=== PATIENT | female | born 1995 | race Caucasian/White ===

== ENCOUNTER 2017-07-27 04:51 | Inpatient (IN) | payer BC, OTHER ==
[~2017-07-27] VITALS: Ht 172.7 cm; Wt 79.1 kg
[~2017-07-27 04:51] MED LIST: Z.0.NO CURRENT MEDS
[2017-07-27 05:00] VITALS: BP 144/83; PULSE 57; RESP 18; TEMP 97.8; O2SAT 100
--- NOTE | 2017-07-27 05:13 | PD ---
HPI Chief Complaint: BA Time Seen by Provider: 05:09 Travel History International Travel<30 days: No Contact w/Intl Traveler<30days: No Traveled to known affect area: No History of Present Illness HPI 22-year-old female presents under Sommer act initiated by the [employer]. According to her paperwork, "Mrs. Esparza does not remember anything past approximately 10 PM. She told dispatch that she was trying to hurt herself by hanging." Patient reports that this evening she went to a bar with a friend and drink some beer. She then went to the beach. She does not recall the interim events but when she woke up she had her sweater wrapped around her neck as a noose and she reports that she does remember that she wanted to hang herself. She reports that the police found her on the beach. She continues to feel depressed and suicidal which has been going on for the past few weeks. She reports multiple attempts at suicide in the past. She denies doing anything else to hurt herself tonight. She endorses occasional marijuana use. She has no medical complaints at this time. [facility] Past Medical History ADHD: No Asthma: Yes (HX OF) Cancer: No Diabetes: No Diminished Hearing: No Psychiatric: No Immunizations Current: Yes Migraines: No Seizures: No Thyroid Disease: No Ulcer: No Menopausal: No : 0 Past Surgical History Appendectomy: No Cholecystectomy: No Other Surgery: Yes (PIN IN HER TOE IN OCTOBER 2008) Social History Alcohol Use: No Tobacco Use: No Substance Use: No Allergies-Medications (Allergen,Severity, Reaction): Coded Allergies: No Known Allergies (Verified , 06/08/10) Uncoded Allergies: dust mites (Allergy, Mild, runny nose, cough, sneeze, 10/13/08) grasses (Allergy, Mild, sneezing, runnynose, 10/13/08) tree pollens (Allergy, Mild, sneezing, 10/13/08) Reported Meds & Prescriptions Reported Meds & Active Scripts Active No Active Prescriptions or Reported Medications Review of Systems Except as stated in HPI: all other systems reviewed are Neg Physical Exam Narrative Examined in the presence of a female nurse. GENERAL: Well-developed well-nourished female no acute distress SKIN: Warm and dry. HEAD: Atraumatic. Normocephalic. EYES: Pupils equal and round. No scleral icterus. No injection or drainage. ENT: No nasal bleeding or discharge. Mucous membranes pink and moist. NECK: Trachea midline. No JVD. CARDIOVASCULAR: Regular rate and rhythm. No murmur appreciated. RESPIRATORY: No accessory muscle use. Clear to auscultation. Breath sounds equal bilaterally. GASTROINTESTINAL: Abdomen soft, non-tender, nondistended. Hepatic and splenic margins not palpable. MUSCULOSKELETAL: No obvious deformities. No clubbing. No cyanosis. No edema. NEUROLOGICAL: Awake and alert. No obvious cranial nerve deficits. Motor grossly within normal limits. Normal speech. PSYCHIATRIC: Depressed mood. Data Data Last Documented VS Vital Signs Date Time Temp Pulse Resp B/P (MAP) Pulse Ox O2 Delivery O2 Flow Rate FiO2 07/27/17 05:23 50 18 07/27/17 05:00 97.8 144/83 (103) 100 Orders Orders Complete Blood Count With Diff (07/27/17 05:11) Comprehensive Metabolic Panel (07/27/17 05:11) Thyroid Stimulating Hormone (07/27/17 05:11) Ed Urine Pregnancytest Poc (07/27/17 05:11) Psych Screen (07/27/17 05:11) Drug Screen, Random Urine (07/27/17 05:11) Alcohol (Ethanol) (07/27/17 05:11) Salicylates (Aspirin) (07/27/17 05:11) Tylenol (Acetaminophen) (07/27/17 05:11) Labs Laboratory Tests Test 07/27/17 05:15 White Blood Count 8.1 TH/MM3 Red Blood Count 4.98 MIL/MM3 Hemoglobin 14.5 GM/DL Hematocrit 43.0 % Mean Corpuscular Volume 86.3 FL Mean Corpuscular Hemoglobin 29.2 PG Mean Corpuscular Hemoglobin Concent 33.8 % Red Cell Distribution Width 12.8 % Platelet Count 202 TH/MM3 Mean Platelet Volume 9.1 FL Neutrophils (%) (Auto) 61.1 % Lymphocytes (%) (Auto) 27.5 % Monocytes (%) (Auto) 8.3 % Eosinophils (%) (Auto) 2.8 % Basophils (%) (Auto) 0.3 % Neutrophils # (Auto) 4.9 TH/MM3 Lymphocytes # (Auto) 2.2 TH/MM3 Monocytes # (Auto) 0.7 TH/MM3 Eosinophils # (Auto) 0.2 TH/MM3 Basophils # (Auto) 0.0 TH/MM3 CBC Comment DIFF FINAL Differential Comment Blood Urea Nitrogen 9 MG/DL Creatinine 0.80 MG/DL Random Glucose 99 MG/DL Total Protein 7.5 GM/DL Albumin 3.8 GM/DL Calcium Level 8.8 MG/DL Alkaline Phosphatase 69 U/L Aspartate Amino Transf (AST/SGOT) 14 U/L Alanine Aminotransferase (ALT/SGPT) 13 U/L Total Bilirubin 0.4 MG/DL Sodium Level 140 MEQ/L Potassium Level 3.7 MEQ/L Chloride Level 108 MEQ/L Carbon Dioxide Level 22.8 MEQ/L Anion Gap 9 MEQ/L Estimat Glomerular Filtration Rate 89 ML/MIN Thyroid Stimulating Hormone 3rd Gen 1.600 uIU/ML Salicylates Level LESS THAN 1.7 MG/DL Urine Opiates Screen NEG Acetaminophen Level LESS THAN 2.0 MCG/ML Urine Barbiturates Screen NEG Urine Amphetamines Screen NEG Urine Benzodiazepines Screen NEG Urine Cocaine Screen NEG Urine Cannabinoids Screen NEG Ethyl Alcohol Level LESS THAN 3 MG/DL MDM Medical Decision Making Medical Screen Exam Complete: Yes Emergency Medical Condition: Yes Medical Record Reviewed: Yes Differential Diagnosis Major depressive disorder, adjustment reaction, acute psychosis, substance- induced mood disorder Narrative Course 22-year-old female presents under a Sommer act for psychiatric evaluation. Mental health screening discussed with the patient. Psychiatric screen ordered. The patient is medically cleared for psychiatric disposition. Diagnosis Primary Impression: Medical clearance for psychiatric admission Scripts No Active Prescriptions or Reported Meds Rich Mariano Jul 27, 2017 05:13
[2017-07-27 05:58] LABS: AUTOMATED NEUTROPHIL # 4.9 TH/MM3 (1.8-7.7); BASOPHIL % 0.3 % (0.0-2.0); EOSINOPHIL # 0.2 TH/MM3 (0-0.4); EOSINOPHIL % 2.8 % (0.0-4.0); HEMOGLOBIN 14.5 GM/DL (11.6-15.3); LYMPH % 27.5 % (9.0-44.0); LYMPHOCYTE # 2.2 TH/MM3 (1.0-4.8); MEAN CELL VOLUME 86.3 FL (80.0-100.0); MEAN CORPUSCULAR HEMOGLOBIN 29.2 PG (27.0-34.0); MEAN CORPUSCULAR HGB CONC 33.8 % (32.0-36.0); MEAN PLATELET VOLUME 9.1 FL (7.0-11.0); MONO % 8.3 % (0.0-8.0); MONOCYTE # 0.7 TH/MM3 (0-0.9); NEUT % 61.1 % (16.0-70.0); PLATELET COUNT 202 TH/MM3 (150-450); RED BLOOD COUNT 4.98 MIL/MM3 (4.00-5.30); RED CELL DISTRIBUTION WIDTH 12.8 % (11.6-17.2); WHITE BLOOD COUNT 8.1 TH/MM3 (4.0-11.0)
[2017-07-27 06:01] LABS: ALBUMIN 3.8 GM/DL (3.4-5.0); ALT (GPT) 13 U/L (10-53); AST (GOT) 14 U/L (15-37); BICARBONATE 22.8 MEQ/L (21.0-32.0); BLOOD UREA NITROGEN 9 MG/DL (7-18); CALCIUM 8.8 MG/DL (8.5-10.1); CHLORIDE 108 MEQ/L (98-107); GLOMERULAR FILTRATION RATE 89 ML/MIN (>89); GLUCOSE,RANDOM 99 MG/DL (74-106); SODIUM (NA) 140 MEQ/L (136-145)
[2017-07-27 06:11] LABS: ACETAMINOPHEN LESS THAN 2.0 MCG/ML (10.0-30.0); ALKALINE PHOSPHATASE 69 U/L (45-117); TOTAL BILIRUBIN ADULT 0.4 MG/DL (0.2-1.0); TOTAL PROTEIN 7.5 GM/DL (6.4-8.2)
[2017-07-27 07:57] VITALS: BP 109/61; PULSE 72; RESP 17; O2SAT 100
[2017-07-27 15:16] VITALS: BP 122/69; PULSE 46; RESP 16; O2SAT 96
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
[2017-07-27] MEDS ORDERED: ALUMINUM/MAGNESIUM/SIMETH 30 ML CUP PO PRN (18:15)
[2017-07-27] MEDS ORDERED: MAGNESIUM HYDROXIDE SUSP 30 ML CUP PO PRN (18:15)
[2017-07-27 19:01] VITALS: BP 122/65; PULSE 40; RESP 16; O2SAT 99
[2017-07-27 22:15] VITALS: BP 134/62; PULSE 52; RESP 18; TEMP 98; O2SAT 100
[2017-07-28 05:58] VITALS: BP 107/58; PULSE 41; RESP 16; TEMP 97.7; O2SAT 99
[2017-07-28 11:43] LABS: BICARBONATE 24.1 MEQ/L (21.0-32.0); BLOOD UREA NITROGEN 10 MG/DL (7-18); CALCIUM 8.8 MG/DL (8.5-10.1); CHLORIDE 107 MEQ/L (98-107); CREATININE 0.82 MG/DL (0.50-1.00); GLOMERULAR FILTRATION RATE 86 ML/MIN (>89); GLUCOSE,RANDOM 87 MG/DL (74-106); SODIUM (NA) 140 MEQ/L (136-145)
[2017-07-28 11:44] LABS: CHOLESTEROL 139 MG/DL (120-200)
[2017-07-28 11:46] LABS: CHOLESTEROL/ HDL RATIO 3.53 RATIO; HDL CHOLESTEROL 39.3 MG/DL (40.0-60.0); LDL CHOLESTEROL 73 MG/DL (0-99); TRIGLYCERIDES 136 MG/DL (42-150)
[2017-07-28] MEDS ORDERED: hydrOXYzine HCL 50 MG TAB PO PRN (13:45)
[2017-07-28] MEDS: buPROPion HCL 150 MG SUSTAINED RELEASE TAB PO SCH (14:26)
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
[2017-07-28] MEDS ORDERED: FLUMAZENIL 0.5 MG/5 ML VIAL IV PUSH PRN (16:00)
[2017-07-28] MEDS ORDERED: LORazepam 2 MG/ML VIAL IV PUSH PRN ×4 (16:00)
[2017-07-28] MEDS ORDERED: LORazepam 1 MG TAB PO PRN (16:00)
[2017-07-28] MEDS ORDERED: LORazepam 2 MG TAB PO PRN (16:00)
[2017-07-28] MEDS: ACETAMINOPHEN 325 MG TAB PO PRN (17:13)
[2017-07-28 17:18] VITALS: BP 128/71; PULSE 60; RESP 16; TEMP 97.3; O2SAT 98
[2017-07-28 18:19] LABS: HEMOGLOBIN A1C 4.8 % (4.3-6.0)
[2017-07-28] MEDS: diphenhydrAMINE HCL 50 MG CAP PO PRN (22:23)
[2017-07-29 05:32] VITALS: BP 108/65; PULSE 59; RESP 18; TEMP 98.2; O2SAT 100
[2017-07-29] MEDS: buPROPion HCL 150 MG SUSTAINED RELEASE TAB PO SCH (08:35)
[2017-07-29] MEDS ORDERED: ALBUTEROL SULFATE 90 MCG/ACT HFA 8 GM INHALER INH PRN (11:45)
[2017-07-29] MEDS ORDERED: guaiFENesin/DEXTROMETHORPHAN 200 MG/20 MG/10 ML CUP PO PRN (11:45)
[2017-07-29] MEDS ORDERED: BENZOCAINE-MENTHOL (SUGAR FREE) 15 MG-3.6 MG LOZENGE BUCCAL PRN (12:15)
--- NOTE | 2017-07-29 12:22 | PD.CONS ---
HPI Service [facility] Hospitalists Consult Requested By Dr. Amaya Reason for Consult SOB/cough, vaginal discharge Primary Care Physician Unknown Diagnoses: History of Present Illness 22-year-old female with history of childhood asthma, ADHD, bipolar disorder, anxiety, admitted to inpatient psychiatry under Sommer act for suicidal ideations. The patient does not recall the events leading up to her admission as she was intoxicated, however the Sommer act reported patient was trying to hurt herself by hanging. Hospitalist consulted for medical management. The patient reports she has had 4 to 5 day history of cough, rhinitis, upper chest congestion, and scratchy throat. Denies fevers/chills. Denies dysphagia/ odynophagia. She reports cough is nonproductive however has yellow-green nasal discharge. She reports a history of seasonal allergies and feels as though her allergies are acting up. She states in the past Zyrtec made her too sleepy therefore she does not take it anymore. She reports occasional shortness of breath and wheezing since she has felt sick. She states her asthma is usually very well controlled and does not need to use it inhaler. Denies any chest pain. She also reports a 9 day history of vaginal discharge described as green- brown. LMP 2 weeks ago. She denies any vaginal pruritus, but does report diffuse lower pelvic pain and suprapubic pain. She also reports some dysuria and increased urinary frequency/urgency. Denies any recent antibiotic use. She does report history of chlamydia. She has no other medical complaints at this time including no lightheadedness, dizziness, chest pain, palpitations, nausea/ vomiting, or diarrhea. Review of Systems Except as stated in HPI: all other systems reviewed are Neg Past Family Social History Allergies: Coded Allergies: No Known Allergies (Verified Allergy, Unknown, 07/27/17) Uncoded Allergies: dust mites (Allergy, Mild, runny nose, cough, sneeze, 10/13/08) grasses (Allergy, Mild, sneezing, runnynose, 10/13/08) tree pollens (Allergy, Mild, sneezing, 10/13/08) Past Medical History Childhood asthma Bipolar disorder ADHD Anxiety Past Surgical History Toe pinning 2008 Reported Medications Denies taking any medications on a regular basis. Active Ordered Medications Current Medications Medications (Trade) Dose Ordered Sig/Sommer Route Start Time Stop Time Status Last Admin (Tylenol) 650 mg Q4H PRN PO 07/27/17 18:15 07/28/17 17:13 (Milk Of Magnesia Liq) 30 ml DAILY PRN PO 07/27/17 18:15 (Mag-Al Plus Susp Liq) 30 ml Q6H PRN PO 07/27/17 18:15 (Wellbutrin Sr) 150 mg DAILY PO 07/28/17 13:45 07/29/17 08:35 (Atarax) 50 mg Q6H PRN PO 07/28/17 13:45 (Benadryl) 50 mg HS PRN PO 07/28/17 13:45 07/28/17 22:23 (Romazicon Inj) 0.2 mg Q1M PRN IV PUSH 07/28/17 16:00 (Ativan) 1 mg Q4H PRN PO 07/28/17 16:00 (Ativan Inj) 1 mg Q4H PRN IV PUSH 07/28/17 16:00 (Ativan) 2 mg Q2H PRN PO 07/28/17 16:00 (Ativan Inj) 2 mg Q2H PRN IV PUSH 07/28/17 16:00 (Ativan Inj) 2 mg Q1H PRN IV PUSH 07/28/17 16:00 (Ativan Inj) 2 mg Q15M PRN IV PUSH 07/28/17 16:00 (Claritin) 10 mg DAILY PO 07/29/17 11:45 UNV (Proair Hfa Inh) 2 puff Q4H PRN INH 07/29/17 11:45 UNV Family History Does not know biological parents' history as patient was adopted Social History Smokes tobacco, 2 cigarettes daily Drinks alcohol, 2 beers or liquor beverages daily Occasional marijuana use, once weekly Denies any other illicit drug use Physical Exam Vital Signs Vital Signs Date Time Temp Pulse Resp B/P (MAP) Pulse Ox O2 Delivery O2 Flow Rate FiO2 07/29/17 05:32 98.2 59 18 108/65 (79) 100 07/28/17 17:18 97.3 60 16 128/71 (90) 98 Physical Exam GENERAL: Well-nourished, well-developed young female patient in [facility]. Patient examined in presence of nurse Serenity. SKIN: Warm and dry. No rash. HEAD: Normocephalic. Atraumatic. EYES: Pupils equal and round. No scleral icterus. No injection or drainage. ENT: No nasal bleeding or discharge. Mucous membranes pink and moist. Oropharynx with mild erythema, otherwise no tonsillar edema or exudate. NECK: Supple. Trachea midline. CARDIOVASCULAR: Regular rate and rhythm. No murmur appreciated. RESPIRATORY: No accessory muscle use. Some upper airway congestion noted, otherwise clear to auscultation. Breath sounds equal bilaterally. GASTROINTESTINAL: Abdomen soft, non-tender, nondistended. Normoactive bowel sounds x4. MUSCULOSKELETAL: No obvious deformities. Extremities without clubbing, cyanosis , or edema. NEUROLOGICAL: Awake and alert. No obvious cranial nerve deficits. Motor grossly within normal limits. Normal speech. PSYCHIATRIC: Appropriate mood and affect; insight and judgment normal. Result Diagram: 07/27/17 0515 07/28/17 0950 Assessment and Plan Assessment and Plan 22-year-old female with history of childhood asthma, ADHD, bipolar disorder, anxiety, admitted to inpatient psychiatry under Sommer act for suicidal ideations. Hospitalist consulted for medical management of cough/congestion and vaginal discharge. Suicidal Ideations/Attempt: presented under Sommer Act. Hx of Bipolar, ADHD, Anxiety. -continue management per psychiatry Viral URI & Seasonal Allergies: patient reporting rhinitis/nonproductive cough/ congestion/sneezing. Afebrile with no leukocytosis. Likely viral in combination with seasonal allergies. -will start on Claritin 10mg daily -Robitussin prn cough, Cepacol lozenges prn -encourage fluids -continue to monitor Asthma: does not appear to be in exacerbation, however patient reports occasional SOB and wheezing with URI as above -will give Albuterol inhaler 2puff q4h prn SOB/wheezing Vaginal Discharge: x9days. With reported diffuse pelvic pain. Reportedly hx of chlamydia. -check GC/Chlamydia PCR -consult gynecology Dysuria: patient reporting dysuria, increased urinary frequency/urgency, and suprapubic pain. -check urinalysis and treat if indicated Tobacco/Alcohol Use: smokes 2 cigarettes daily, and drink 2 alcoholic beverages daily -counseled on cessation -patient declined need for nicotine patch DVT Prophylaxis: patient is ambulatory Madeline Fragoso PA-C Jul 29, 2017 12:22
--- NOTE | 2017-07-29 12:37 | HHI.PYPN ---
Subjective Remarks Patient seen and examined with nurse in coverage for Dr. Amaya. Chart reviewed. Case discussed with nursing staff who reports patient continues to verbalize intermittent suicidal ideation but declines to provide her suicide plan when asked. On my examination today, the patient says that she is "still feeling pretty down." She does say that she's been a little more active than her appetite has been better since coming on the unit. She denies any homicidal ideation but endorses ongoing suicidal ideation and refuses to contract for safety on the inpatient unit. She has no suicide plan at present. We discussed need for transfer to higher acuity unit for closer monitoring as she is not yareli for safety on the inpatient unit, and the patient agrees that this is a prudent step presently. I have instructed the patient's nurse and charge nurse to transfer the patient to the high acuity unit, camera room. No psychotic symptoms presently. Denies side effects from medications. No physical complaints. Patient remains a Sommer act but is agreeable to signing into the hospital voluntarily, and I bankruptcy judge that she has capacitated to do so. Review of Systems Except as stated in HPI: all other systems reviewed are Neg Mental Status Examination Appearance: Appropriate Consciousness: Alert Orientation: x4 Motor Activity: Normal gait, Other (no motor abnormalities noted. No signs of withdrawal noted.) Speech: Unremarkable Language: Adequate Fund of Knowledge: Adequate Attention and Concentration: Adequate Memory: Unremarkable Mood: Sad Affect: Other (moderately full and reactive) Thought Process & Associations: Intact, Logical, Goal directed, Linear Thought Content: Appropriate Hallucination Type: None Delusion Type: None Suicidal Ideation: Yes Suicidal Plan: No Suicidal Intention: No (declines to contract for safety on the inpatient unit) Homicidal Ideation: No Homicidal Plan: No Homicidal Intention: No Insight: Fair Judgment: Impulsive Results Labs Labs reviewed. Vitals/IOs Vital Signs Date Time Temp Pulse Resp B/P (MAP) Pulse Ox O2 Delivery O2 Flow Rate FiO2 07/29/17 05:32 98.2 59 18 108/65 (79) 100 07/27/17 19:01 Room Air Assessment & Plan Problem List: (1) Adjustment disorder with depressed mood ICD Codes: F43.21 - Adjustment disorder with depressed mood (2) Polysubstance abuse ICD Codes: F19.10 - Other psychoactive substance abuse, uncomplicated Assessment & Plan Continue Wellbutrin as ordered. Transfer patient to high acuity unit, camera room. Hospitalist input noted and appreciated. Continue other medications and care as ordered. Patient may sign voluntary. Justification for Cont. Inpt. Concern for impairment in safety. Discharge Planning Per Dr. Amaya Request HC Surrog/Guard Advoc?: No Say Lockhart MD Jul 29, 2017 12:37
[2017-07-29] MEDS: LORATADINE 10 MG TAB PO SCH (13:34)
[2017-07-29 16:54] LABS: BILIRUBIN, URINE NEG (NEG); BLOOD, URINE NEG (NEG); GLUCOSE,URINE NEG (NEG); KETONE, URINE NEG (NEG); NITRITE,URINE NEG (NEG); SQUAMOUS EPITHELIAL CELL URINE 5 /hpf (0-5); URINE COLOR YELLOW (YELLW/STRAW); URINE LEUKOCYTE ESTERASE NEG (NEG)
--- NOTE | 2017-07-29 18:04 | PD.CONS ---
HPI Chief Complaint Pelvic pain and vaginal discharge Date Seen: Jul 29, 2017 Time Seen: 17:58 Travel History International Travel<30 Days: No Contact w/Intl Traveler<30Days: No Known Affected Area: No History of Present Illness HPI Patient 22-year-old female who is admitted to psychiatry due to suicidal ideation. Patient complains of pelvic pain that occurred several days per month just in the suprapubic area and occasionally after voiding. Patient states that she has had 1-1/2 weeks of a malodorous, brown vaginal discharge that also comes and goes. Patient denies recent coitus and denies exposure to any STDs within the past several weeks. Patient states that she was treated for gonorrhea in May and she has had a history of chlamydia in the past which was also treated. Patient has monthly cycles the last 2-3 days the time and is not on any contraception at this time Para: 0 : 1 Miscarriage: 1 History Past Medical History Medical History: Denies Significant Hx Obstetric History Obstetric History Miscarriage when a teenager Past Surgical History Narrative Surgical Toe pinning Family History Narrative Family History Patient is adopted and does not know family history Social History Alcohol Use: Yes Tobacco Use: Yes Substance Abuse: Yes Allergies-Medications (Allergen,Severity, Reaction): Coded Allergies: No Known Allergies (Verified Allergy, Unknown, 07/27/17) Uncoded Allergies: dust mites (Allergy, Mild, runny nose, cough, sneeze, 10/13/08) grasses (Allergy, Mild, sneezing, runnynose, 10/13/08) tree pollens (Allergy, Mild, sneezing, 10/13/08) Home Meds Discontinued Reported Medications Miscellaneous (No Current Meds) [facility] [place] 06/08/10 Review of Systems Except as stated in HPI: all other systems reviewed are Neg Physical Exam Vital Signs Date Time Temp Pulse Resp B/P (MAP) Pulse Ox O2 Delivery O2 Flow Rate FiO2 07/29/17 05:32 98.2 59 18 108/65 (79) 100 Narrative GENERAL: Well-nourished, well-developed patient. SKIN: Warm and dry. HEAD: Normocephalic and atraumatic. ABDOMEN/GI: Abdomen soft, non-tender, bowel sounds present, no rebound, no guarding GENITOURINARY: External Genitalia: intact and normal in appearance BUS glands: Normal. Small amount of discharge that appears physiologic on examination no obvious odor noted cervix is in the midline, normal. Uterus is palpable in the midline and nontender retroverted, adnexa are nontender and no palpable masses are noted EXTREMITIES: No cyanosis or edema. BACK: Nontender without obvious deformity. No CVA tenderness. Data Data Vital Signs Reviewed: Yes Orders Orders Physician Name Changes (07/29/17 ) (Hub Use Only)Inp Phy Cons/Ref (07/29/17 ) Urinalysis - C+S If Indicated (07/29/17 11:40) Specimen To Be Collected PRN (07/29/17 11:40) Gc And Chlamydia Pcr (07/29/17 11:40) Loratadine (Claritin) (07/29/17 11:45) Albuterol Hfa Inh (Proair Hfa Inh) (07/29/17 11:45) Guaifen-Dm 200-20 Mg/10 Ml Liq (Robituss (07/29/17 11:45) Consult Gynecology (07/29/17 ) (Hub Use Only)Inp Phy Cons/Ref (07/29/17 ) Benzocain-Menthol (Sugar Free) (Cepacol (07/29/17 12:15) ^ Encourage Fluids (07/29/17 12:08) ^ Other Nursing Orders (07/29/17 12:37) Us Pelvis Comp W Transvaginal (07/29/17 ) Beta Hcg (Quant/Titer) (07/29/17 13:37) Labs Laboratory Tests Test 07/29/17 09:50 07/29/17 11:40 07/29/17 15:03 Human Chorionic Gonadotropin, Quant LESS THAN 1 Urine Color YELLOW Urine Turbidity CLEAR Urine pH 7.0 Urine Specific [place] 1.018 Urine Protein NEG Urine Glucose (UA) NEG Urine Ketones NEG Urine Occult Blood NEG Urine Nitrite NEG Urine Bilirubin NEG Urine Urobilinogen LESS THAN 2.0 Urine Leukocyte Esterase NEG Urine WBC LESS THAN 1 Urine Squamous Epithelial Cells 5 Microscopic Urinalysis Comment CULT NOT INDICATED MDM Medical Record Reviewed: Yes Plan 22-year-old female , negative test. History of gonorrhea and or chlamydia within the past 6 months GC and chlamydia PCR were ordered and are still pending No abnormalities are noted on pelvic exam however with the patient's history of antibiotic use and her complaint of malodorous discharge bacterial vaginosis is a possibility. Patient is very interested in treatment as the discharge has been worrisome and anxiety provoking.. Discussed MetroGel versus Flagyl and she would rather have an oral treatment rather than vaginal Transvaginal ultrasound was ordered for pelvic pain Admitting diagnosis: Bipolar Disorder, substance Induced mood disorder Scripts No Active Prescriptions or Reported Meds Fozia Pat MD Jul 29, 2017 18:03
[2017-07-29 18:08] VITALS: BP 137/73; PULSE 49; RESP 17; TEMP 97.4; O2SAT 98
[2017-07-29] MEDS: metroNIDAZOLE 500 MG TAB PO SCH (21:14)
[2017-07-29] MEDS: diphenhydrAMINE HCL 50 MG CAP PO PRN (23:18)
[2017-07-30 05:48] VITALS: BP 133/75; PULSE 48; RESP 16; TEMP 97.2; O2SAT 100
[2017-07-30] MEDS: metroNIDAZOLE 500 MG TAB PO SCH ×2 (09:19→21:09)
[2017-07-30] MEDS: LORATADINE 10 MG TAB PO SCH (09:19)
[2017-07-30] MEDS: buPROPion HCL 150 MG SUSTAINED RELEASE TAB PO SCH (09:19)
--- NOTE | 2017-07-30 09:32 | HHI.PYPN ---
Subjective Remarks Patient seen and examined with nurse in coverage for Dr. Amaya. Chart reviewed. Case discussed with nursing staff. Case discussed in treatment team. Mood is "a lot better" today. She denies suicidal or homicidal ideation. Denies audiovisual hallucinations. Somewhat anxious. Denies side effects from medications. No physical complaints. Would like to go back to lower acuity unit. Review of Systems Except as stated in HPI: all other systems reviewed are Neg Mental Status Examination Appearance: Appropriate Consciousness: Alert Orientation: x4 Motor Activity: Other (no signs of withdrawal noted. No motoric abnormalities noted.) Speech: Unremarkable Language: Adequate Fund of Knowledge: Adequate Attention and Concentration: Adequate Memory: Unremarkable Mood: Other (improved today) Affect: Blunt Thought Process & Associations: Intact, Logical, Goal directed, Linear Thought Content: Appropriate Hallucination Type: None Delusion Type: None Suicidal Ideation: No Suicidal Plan: No Suicidal Intention: No Homicidal Ideation: No Homicidal Plan: No Homicidal Intention: No Insight: Fair Judgment: Impulsive Results Labs Test 07/29/17 09:50 07/29/17 11:40 07/29/17 15:03 Human Chorionic Gonadotropin, Quant LESS THAN 1 MIU/ML Urine Color YELLOW Urine Turbidity CLEAR Urine pH 7.0 Urine Specific [place] 1.018 Urine Protein NEG mg/dL Urine Glucose (UA) NEG mg/dL Urine Ketones NEG mg/dL Urine Occult Blood NEG Urine Nitrite NEG Urine Bilirubin NEG Urine Urobilinogen LESS THAN 2.0 MG/DL Urine Leukocyte Esterase NEG Urine WBC LESS THAN 1 /hpf Urine Squamous Epithelial Cells 5 /hpf Microscopic Urinalysis Comment CULT NOT INDICATED Chlamydia trachomatis DNA (PCR) NOT DETECTED Neisseria gonorrhoeae DNA (PCR) NOT DETECTED Labs reviewed Last Impressions Pelvis Ultrasound 07/30/17 0000 Signed Impressions: Service Date/Time: Sunday, July 30, 2017 12:35 - CONCLUSION: 1. Small 1.1 cm right ovarian cyst. This does not require additional followup evaluation. 2. Otherwise, unremarkable pelvic ultrasound exam. Michael Soto MD Vitals/IOs Vital Signs Date Time Temp Pulse Resp B/P (MAP) Pulse Ox O2 Delivery O2 Flow Rate FiO2 07/30/17 05:48 97.2 48 16 133/75 (94) 100 07/27/17 19:01 Room Air Assessment & Plan Problem List: (1) Adjustment disorder with depressed mood ICD Codes: F43.21 - Adjustment disorder with depressed mood (2) Polysubstance abuse ICD Codes: F19.10 - Other psychoactive substance abuse, uncomplicated Assessment & Plan Continue Wellbutrin as ordered. I did offer to titrate this agent, but the patient prefers to continue with current dose for now. If patient passes an uneventful evening and contracts for safety on the inpatient unit, we could consider transfer back to lower acuity unit tomorrow, Wednesday. Continue other medications and care as ordered. Justification for Cont. Inpt. Risk for decompensation in less restrictive environment. Discharge Planning Per Dr. Amaya Request HC Surrog/Guard Advoc?: No Say Lockhart MD Jul 30, 2017 09:32
--- NOTE | 2017-07-30 14:16 | RADRPT ---
EXAM DATE/TIME: 07/30/2017 12:35 [facility] COMPARISON: No previous studies available for comparison. INDICATIONS : Cysts. MEDICAL HISTORY : SURGICAL HISTORY : ENCOUNTER: Initial ACUITY: 1 day PAIN SCORE: 0/10 LOCATION: MEASUREMENTS: UTERUS: 6.5 x 4.1 x 3.4 cm ENDOMETRIAL STRIPE: 5 mm RIGHT OVARY: 3.7 x 2.2 x 2.3 cm LEFT OVARY: 3.3 x 2.3 x 2.3 cm FINDINGS: UTERUS: The myometrium has homogeneous echotexture without mass. RIGHT OVARY: Ovary contains no mass or significant cystic lesion. LEFT OVARY: Ovary contains no mass or significant cystic lesion. MISCELLANEOUS: No free fluid. CONCLUSION: 1. Small 1.1 cm right ovarian cyst. This does not require additional followup evaluation. 2. Otherwise, unremarkable pelvic ultrasound exam. Michael Soto MD on July 30, 2017 at 14:12 Board Certified Radiologist. This report was verified electronically.
[2017-07-30 18:00] VITALS: BP 135/67; PULSE 55; RESP 18; TEMP 98.1; O2SAT 99
[2017-07-30] MEDS: diphenhydrAMINE HCL 50 MG CAP PO PRN (21:09)
[2017-07-31 06:19] VITALS: BP 124/65; PULSE 57; RESP 16; TEMP 97.2; O2SAT 100
[2017-07-31] MEDS: buPROPion HCL 150 MG SUSTAINED RELEASE TAB PO SCH (08:30)
[2017-07-31] MEDS: LORATADINE 10 MG TAB PO SCH (08:30)
[2017-07-31] MEDS: metroNIDAZOLE 500 MG TAB PO SCH ×2 (08:30→20:26)
--- NOTE | 2017-07-31 09:26 | HHI.PR ---
SCHEDULING COORDINATOR Note Note Patient is doing well this morning. The pelvic pain is much reduced and she no longer has vaginal discharge. Transvaginal ultrasound findings are significant for a small 1.1cm right ovarian cyst which may explain the pelvic pain. Otherwise unremarkable. At this time, COMMUNITY RELATIONS ADVISOR will sign off. Thank you for including us in the care of this patient. Please contact us if any questions arise. Bernie Suero Dr., MD Jul 31, 2017 09:26
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
[2017-07-31 18:09] VITALS: BP 147/79; PULSE 54; RESP 18; TEMP 99.1; O2SAT 98
[2017-08-01 05:49] VITALS: BP 129/76; PULSE 76; RESP 20; TEMP 97.6; O2SAT 98
[2017-08-01] MEDS: metroNIDAZOLE 500 MG TAB PO SCH ×2 (08:59→20:26)
[2017-08-01] MEDS: LORATADINE 10 MG TAB PO SCH (08:59)
[2017-08-01 15:34] VITALS: BP 130/82; PULSE 63; RESP 18; TEMP 98.7; O2SAT 100
--- NOTE | 2017-08-01 15:59 | HHI.PYPN ---
Subjective Remarks Pt seen and discussed with staff. She denies any type of self harm thoughts. She reports feelings of anxiety and agitation have improved with holding of bupropion today. She reports that she has 3 previous trials of different antidepressants but can't recall names (thinks lexapro and venlafaxine). She states that all were stopped because depression and agitation worsened. She reports that she took Abilify during adolescence for mood and anger and depression was significantly improved. She reports that she tolerated medication without side effects but stopped because she was on a high dose (" for anger..but it was typical teenage stuff") didn't think she needed it. Risks vs benefits, indication and rationale for use, potential side effects including metabolic syndrome and tardive dykinesia discussed with pt. Pt consents to trial of abilify to target mood symptoms. Mental Status Examination Appearance: Appropriate Consciousness: Alert Orientation: x4 Motor Activity: Other (no signs of withdrawal noted. No motoric abnormalities noted.) Speech: Unremarkable Language: Adequate Fund of Knowledge: Adequate Attention and Concentration: Adequate Memory: Unremarkable Mood: Sad Affect: Sad Thought Process & Associations: Linear Thought Content: Appropriate Hallucination Type: None Delusion Type: None Suicidal Ideation: No Suicidal Plan: No Suicidal Intention: No Homicidal Ideation: No Homicidal Plan: No Homicidal Intention: No Insight: Fair Judgment: Impulsive Results Vitals/IOs Vital Signs Date Time Temp Pulse Resp B/P (MAP) Pulse Ox O2 Delivery O2 Flow Rate FiO2 08/01/17 15:34 98.7 63 18 130/82 (98) 100 Assessment & Plan Problem List: (1) Adjustment disorder with depressed mood ICD Codes: F43.21 - Adjustment disorder with depressed mood (2) Polysubstance abuse ICD Codes: F19.10 - Other psychoactive substance abuse, uncomplicated Assessment & Plan Start trial of abilify to target mood lability. Estimated LOS: days Justification for Cont. Inpt. medication changes requiring monitoring. Request HC Surrog/Guard Advoc?: Cassi Mckinney MD Aug 01, 2017 15:59
[2017-08-01] MEDS: diphenhydrAMINE HCL 50 MG CAP PO PRN (20:26)
[2017-08-02 05:45] VITALS: BP 108/58; PULSE 45; PULSE 65; RESP 17; TEMP 97.4; O2SAT 97
[2017-08-02] MEDS: LORATADINE 10 MG TAB PO SCH (08:23)
[2017-08-02] MEDS: ARIPiprazole 5 MG TAB PO SCH (08:23)
[2017-08-02] MEDS: metroNIDAZOLE 500 MG TAB PO SCH ×2 (08:24→20:56)
--- NOTE | 2017-08-02 09:31 | HHI.PYPN ---
Subjective Remarks Patient seen and examined with nurse. Chart reviewed. Case discussed with nursing staff. No behavioral issues noted overnight. I note that Dr. Wise switched the patient from Wellbutrin to Abilify, first dose this morning. On my exam, patient is in fairly good spirits. She is requesting to return to 2600. She denies any suicidal or homicidal ideation and contracts for safety. No psychotic symptoms. No physical complaints. Review of Systems Except as stated in HPI: all other systems reviewed are Neg Mental Status Examination Appearance: Appropriate Consciousness: Alert Orientation: x4 Motor Activity: Other (no motoric abnormalities appreciated. No signs of withdrawal noted.) Speech: Unremarkable Language: Adequate Fund of Knowledge: Adequate Attention and Concentration: Adequate Memory: Unremarkable Mood: Appropriate Affect: Appropriate Thought Process & Associations: Intact, Logical, Linear Thought Content: Appropriate Hallucination Type: None Delusion Type: None Suicidal Ideation: No Suicidal Plan: No Suicidal Intention: No Homicidal Ideation: No Homicidal Plan: No Homicidal Intention: No Mental Status Exam Remarks Insight and judgment are fair Results Labs Labs reviewed. Vitals/IOs Vital Signs Date Time Temp Pulse Resp B/P (MAP) Pulse Ox O2 Delivery O2 Flow Rate FiO2 08/02/17 05:45 97.4 45 17 108/58 (75) 97 Assessment & Plan Problem List: (1) Adjustment disorder with depressed mood ICD Codes: F43.21 - Adjustment disorder with depressed mood (2) Polysubstance abuse ICD Codes: F19.10 - Other psychoactive substance abuse, uncomplicated Assessment & Plan First dose of Abilify this morning. Monitor for side effects and response. No signs of GABAergic withdrawal; d/c CIWA. Transfer back to lower acuity unit. Continue other medications and care as ordered. Justification for Cont. Inpt. Medication changes. Discharge Planning Possible discharge next 1-3 days. Request HC Surrog/Guard Advoc?: No Say Lockhart MD Aug 02, 2017 09:31
[2017-08-02] MEDS: ACETAMINOPHEN 325 MG TAB PO PRN (17:16)
[2017-08-02 18:18] VITALS: BP 130/67; PULSE 61; RESP 17; TEMP 98; O2SAT 99
[2017-08-02] MEDS: diphenhydrAMINE HCL 50 MG CAP PO PRN (21:57)
[2017-08-03 05:46] VITALS: BP 113/57; PULSE 51; RESP 14; TEMP 98.1; O2SAT 97
[2017-08-03] MEDS: ARIPiprazole 5 MG TAB PO SCH (08:32)
[2017-08-03] MEDS: metroNIDAZOLE 500 MG TAB PO SCH (08:32)
[2017-08-03] MEDS: LORATADINE 10 MG TAB PO SCH (08:32)
[2017-08-03] MEDS ORDERED: CLAR10TA7 PO (11:43)
[2017-08-03] MEDS ORDERED: METR-1 PO (11:43)
[2017-08-03] MEDS ORDERED: ARIP1TAB11 PO (11:43)
--- NOTE | 2017-08-03 11:43 | HHI.DS ---
Psychiatry Discharge Summary Inpatient Psychiatric care?: Yes Advance Directive: No Reason Not Provided: declined Mental Health AdvanceDirective: No Health Care Proxy: No Admission Admission Date Jul 27, 2017 at 18:07 Admission Diagnosis: (1) Adjustment disorder with depressed mood ICD Code: F43.21 - Adjustment disorder with depressed mood (2) Polysubstance abuse ICD Code: F19.10 - Other psychoactive substance abuse, uncomplicated Brief History Patient is a 22-year-old woman, single, no children, unemployed, domiciled renting a room, with a past psychiatric history of bipolar disorder, anxiety, ADHD as per patient, polysubstance use disorder (methamphetamines/THC/ cocaine/alcohol), with one previous psychiatric admission 14 years old, multiple suicide attempts, history of self-induced behavior via cutting, with a past medical history significant for asthma, who was brought under [place] act by police after patient was trying to hurt herself by hanging as well as feeling depressed, having suicide ideation for the past couple of weeks which patient was admitted to the inpatient psychiatry for further evaluation and management. As per the [place] act patient to try to hurt herself by hanging after having gone for drinks and woke up with a sweater around her neck. Patient also endorsed feeling depressed along with suicide ideations and has had history of multiple suicide attempts. Review of labs show the patient was negative for any substance intoxication as urine toxicology was negative and blood alcohol level was negative. Patient was found participating in group notably, cooperative. Patient states that she had a "mental breakdown" after she had seen her ex-boyfriend across the street prior to admission in which she had ran to the beach was crying. Patient also reports having been feeling depressed for the past 4 months with decreased motivation, decreased sleep, appetite, energy, concentration, feeling helpless and hopeless, and having suicide ideation which has been worsening for the past 2 weeks. Patient states that she has been having difficulty also getting out of bed. Patient states that her stressors that contribute to her mood has been poor motivation, not having any friends that are not involved in drugs, financial difficulties and "dealing with my addiction". Patient states that she did have a plan of going to the was a shooting herself back in June but nothing recent. Patient continues report feeling depressed, continue to endorse suicide ideations with denying any HI, AVH or delusions. Family psychiatric history: Unknown as patient was adopted Past psychiatric history: ADHD, bipolar, anxiety as per patient, one previous psychiatric admission at 14 years old, 11 previous suicide attempts (via overdose, cutting, suffocate self) last time being one half months ago which she states she attempted to suffocate herself with a pillowcase. She reports history of self injury behavior cutting last time being in May this year. Patient denies having any mental health provider at this time. Substance use history: Marijuana use daily but and currently once per week, daily alcohol use usually about 2-3 drinks, methamphetamine use daily but last time being 1-1/2 months ago. Patient also reports cocaine use once per week. Patient reports having medications [facility] outpatient treatment in the past but denies having been engage in any detox or rehab. 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. Legal history previous arrest for possession of marijuana, previous arrest for battery and domestic violence. Collateral contact: Rosalba -Kristen Esparza [phone]. Tobacco Use In Past 30 Days: Cigarettes But Not Daily Alcohol Use: 4 or More Times Per Week Hospital Course Patient was admitted to a locked, inpatient psychiatric unit. A general medical consultation was obtained. A gynecological consultation was obtained. Appropriate precautions were in place throughout patient's hospital stay. Patient was seen and examined on the inpatient unit by psychiatry and also visited by counselor. Psychotropic medications were adjusted. Patient had improvement in presenting psychiatric symptomatology during the course of her hospital stay. There was no evidence of any suicidality or homicidality on the inpatient unit. There was no evidence of self care deficit. Patient remained in good behavioral control for the several days prior to discharge. On the day of discharge: Patient seen and examined with nurse. Chart reviewed. Case discussed with nursing staff. No behavioral issues noted overnight. Case discussed in treatment team. On my examination today, the patient is requesting discharge from the inpatient psychiatric unit today. She denies any suicidal or homicidal ideation, intent or plan on direct questioning and contracts for safety. Mood is fair and I can elicit no depressive or hypomanic/ manic symptoms. She is future oriented with several near and long-term goals. She verbalizes a desire for abstinence from substances and describes plans to follow-up with [facility] for chemical dependency evaluation and treatment and also to pursue 12 step programming. She denies any audiovisual hallucinations. I can elicit no delusional beliefs. There is no evidence of any impairment in reality construction. She denies side effects from medications. She has no acute physical complaints. Suicide and violence risk assessment on day of discharge both suggest lower imminent risk, and the patient 's level of function is adequate for outpatient care. Patient has maximized benefit from this inpatient psychiatric hospital stay. She does not meet criteria for involuntary psychiatric hospitalization and is requesting discharge from the inpatient psychiatric unit today. I have no basis to retain her over her objection. Patient will be discharged today with psychiatric follow-up as arranged by counselor. Patient is also to follow-up with primary care and with gynecology. I have counseled the patient to abstain from substances of abuse and supported her in her desire for sobriety. I have encouraged her to pursue chemical dependency evaluation and treatment on an outpatient basis as she intends to do. I have counseled the patient regarding warning signs for need to return to the psychiatric emergency room as part of a general safety plan. Results Blood Pressure 113 / 57 Vital Signs Date Time Temp Pulse Resp B/P (MAP) Pulse Ox O2 Delivery O2 Flow Rate FiO2 08/03/17 05:46 98.1 51 14 113/57 (75) 97 Laboratory Results Test 07/28/17 09:50 Cholesterol Level 139 MG/DL (120-200) HDL Cholesterol 39.3 MG/DL (40.0-60.0) Hemoglobin A1c 4.8 % (4.3-6.0) LDL Cholesterol 73 MG/DL (0-99) Triglycerides Level 136 MG/DL (42-150) Summary of Procedures None done Imaging Last Impressions Pelvis Ultrasound 07/30/17 0000 Signed Impressions: Service Date/Time: Sunday, July 30, 2017 12:35 - CONCLUSION: 1. Small 1.1 cm right ovarian cyst. This does not require additional followup evaluation. 2. Otherwise, unremarkable pelvic ultrasound exam. Michael Soto MD Pending results at discharge: No Medications # of Antipsychotic meds at D/C: 1 Approp Antipsych med options 1 - Minimum of three failed multiple trials of monotherapy. 2 - Documented plan to taper to monotherapy due to previous use of multiple meds OR cross-taper in progress at D/C. 3 - Documentation of augmentation of Clozapine. 4 - Justification other than those listed in allowable values 1-3, document here : Discharge Discharge Date: Aug 03, 2017 Discharge Diagnosis: (1) Adjustment disorder with depressed mood Diagnosis: Principal (resolved) ICD Code: F43.21 - Adjustment disorder with depressed mood (2) Polysubstance abuse Diagnosis: Secondary (counseled to quit) ICD Code: F19.10 - Other psychoactive substance abuse, uncomplicated Pt Condition on Discharge: Stable Discharge Disposition: Discharge Home Discharge Instructions Diet Instructions: As Tolerated, No Restrictions Activities you can perform: Weight Bearing as Nima Scheduled Appointment: as per counselor's notes New Orders: BASIC METABOLIC PROF - 1 Week New Medications: Aripiprazole (Aripiprazole) 5 Mg Tab 5 MG PO DAILY for Mental Health for 15 Days, #15 TAB 1 Refill Loratadine (Claritin) 10 Mg Tablet 10 MG PO DAILY for Health for 15 Days, #15 TAB 1 Refill Metronidazole (Flagyl) 500 Mg Tab 500 MG PO Q12HR for Antibiotic for 2 Days, TAB 0 Refills Discharge Time > 30 minutes Mental Status Examination Appearance: Appropriate Consciousness: Alert Orientation: x4 Motor Activity: Normal gait, Other (no hand tremor, no dystonia, no dyskinesia , no other motor abnormalities noted. No signs of withdrawal noted.) Speech: Unremarkable Language: Adequate Fund of Knowledge: Adequate Attention and Concentration: Adequate Memory: Unremarkable Mood: Appropriate Affect: Appropriate Thought Process & Associations: Intact, Logical, Goal directed, Linear Thought Content: Appropriate Hallucination Type: None Delusion Type: None Suicidal Ideation: No Suicidal Plan: No Suicidal Intention: No Homicidal Ideation: No Homicidal Plan: No Homicidal Intention: No Mental Status Exam Remarks Insight and judgment are fair Discharge/Advance Care Plan Health Problems: (1) Adjustment disorder with depressed mood (2) Polysubstance abuse Goals to promote your health * To prevent worsening of your condition and complications * To maintain your health at the optimal level Directions to meet your goals Take your medications as prescribed Follow your dietary instruction Follow activity as directed Keep your appointments as scheduled Take your immunizations and boosters as scheduled If your symptoms worsen call your PCP, if no PCP go to Urgent Care Center or Emergency Room For 30/11 questions related to your inpatient stay or results of tests pending at discharge, please contact Dr. Say Lockhart at Smoking is Dangerous to Your Health. Avoid second hand smoking Say Lockhart MD Aug 03, 2017 11:43
--- NOTE | 2017-08-03 14:01 | PD.TTN ---
Patient Problems 1. Discharge planning 2. Medication compliance 3. Knowledge deficit 4. Lack of coping skills Progress Toward Goals Provider Present: Dr. Marlen Lockhart Provider Input: 07/30/17 patient meets criteria and seen for suicidal ideations 08/03/17 patient is stable and potential discharge today Psychiatric Counselors Present: Tegan Bailey LCSW Psych Therapist Input: 07/30/17 privded patient with sober living and substance abuse packet, also with a work excuse and spent some time discussing coping and sobriety 08/03/17 patient will follow up with [facility] upon discharge, appears wanting to discharge today Group Spec/RT/OT/ABREU Present: BRADY Sequeira Group Spec/RT/OT/ABREU Input: 07/30/17 new to groups 08/03/17 has been attending groups and is observed social and engaging Tegan Bailey LCSW Aug 03, 2017 14:01
== END 2017-08-03 16:00 | disposition home or self-care (01) | DRG 881 ==
LOC: NEPD 04:51 → NEDA 18:07 → H260 22:17 → H270 07-29 15:31 → H260 08-02 12:30
PROVIDERS: ADMIT Psychiatry & Neurology Psychiatry; ATTEND Psychiatry & Neurology Psychiatry
DX: F43.21 Adjustment disorder with depressed mood (principal); F19.10 Other psychoactive substance abuse, uncomplicated; Z72.0 Tobacco use; J31.0 Chronic rhinitis; J45.909 Unspecified asthma, uncomplicated; J06.9 Acute upper respiratory infection, unspecified; N89.8 Other specified noninflammatory disorders of vagina; N83.201 Unspecified ovarian cyst, right side
CPT/HCPCS: 76856; 80048; 80053; 80061; 80307; 81001; 83036; 84443; 84702; 84703; 85025; 87491; 87591; Q0163